=== PATIENT | male | born 1980 | race Caucasian/White ===

== ENCOUNTER 2018-04-27 13:14 | Emergency (ER) | payer MEDICAID, OTHER ==
[~2018-04-27] VITALS: Ht 188 cm; Wt 108.9 kg
[2018-04-27 13:15] VITALS: BP_SYST 158
--- NOTE | 2018-04-27 13:15 | NUR ---
BROUGHT BACK TO BED #6 AND TRIAGED. REPORT GIVEN TO KELLI
--- NOTE | 2018-04-27 13:30 | NUR ---
ER at bedside examining patient.
[2018-04-27] MEDS ORDERED: NACL 0.9% 1,000 ML IV ONE ×2 (13:45→15:30)
--- NOTE | 2018-04-27 13:50 | NUR ---
Patient is awake, alert, and oriented x4. He states he believes he had a concussion because he hit his head. He reports slipping on the concrete outside of his home and landed on the left backside of his head. States he has dizziness, nausea, and diaphoretic. Reports both torn rotator cuffs that have been repaired, umbillical hernia repair, hypertension.
--- NOTE | 2018-04-27 13:52 | NUR ---
Patient became naseous, emesis bag provided, produced 150cc of yellow vomit.
[2018-04-27] MEDS ORDERED: MORPHINE 4 MG/ML INJ. SYRINGE IVP ONE (14:15)
[2018-04-27] MEDS ORDERED: ONDANSETRON HCL 4 MG/2 ML VIAL IVP ONE (14:30)
[2018-04-27 14:49] LABS: BASOPHILS # (AUTO) 0.1 K/uL (0.0-0.2); BASOPHILS % (AUTO) 0.6 % (0.0-2.0); EOSINOPHILS # (AUTO) 0.1 K/uL (0.0-0.4); EOSINOPHILS % (AUTO) 0.8 % (0.0-4.0); HEMATOCRIT 46.3 % (36-54); HEMOGLOBIN 16.1 g/dL (14.0-18.0); LYMPHOCYTES # (AUTO) 2.8 K/uL (1.0-5.5); LYMPHOCYTES % (AUTO) 31.9 % (20.5-51.5); MEAN CORPUSCULAR HEMOGLOBIN 33 pg (27-31); MEAN CORPUSCULAR HGB CONC 35 % (32-36); MEAN CORPUSCULAR VOLUME 93 fL (79.0-98.0); MONOCYTES # (AUTO) 0.8 K/uL (0.0-1.0); MONOCYTES % (AUTO) 9.4 % (1.7-9.3); NEUTROPHILS % (AUTO) 57.3 % (40.0-70.0); PLATELET COUNT (AUTO) 237 K/uL (130-430); RED BLOOD CELL COUNT(AUTO) 4.95 MIL/uL (4.2-6.2); RED CELL DISTRIBUTION WIDTH 12.2 % (9.0-15.0); WHITE BLOOD COUNT (AUTO) 8.8 K/uL (4.8-10.8)
--- NOTE | 2018-04-27 14:50 | NUR ---
Patient transported to radiology via gurney, accompanied by radio frequency technician.
[2018-04-27 14:55] LABS: CALCIUM 9.8 mg/dL (8.4-11.0); CREATININE 1.11 mg/dL (0.55-1.30); POTASSIUM 4.1 mmol/L (3.5-5.1)
[2018-04-27 14:58] LABS: INR 1.1 (0.80-1.20); PROTHROMBIN TIME 11.1 SECS (9.5-12.5)
[2018-04-27 15:01] LABS: ALBUMIN 4.1 g/dL (3.4-4.8); TOTAL BILIRUBIN 0.6 mg/dL (0.0-1.0)
--- NOTE | 2018-04-27 15:05 | NUR ---
Returned from radiology, back to [facility].
[2018-04-27] MEDS ORDERED: PROMETHAZINE HCL 25 MG/ML AMP IVP ONE ×2 (15:30→19:30)
--- NOTE | 2018-04-27 17:02 | NUR ---
Spoke with Caden from [facility] [place] [facility] [place] scan and mechanism of injury.
--- NOTE | 2018-04-27 17:21 | NUR ---
PT MOVED TO BED 06
--- NOTE | 2018-04-27 17:21 | NUR ---
Jose jackson in [facility] - 04/27/18 at 1721 by MARY BETH PT MOVED TO BED 06
--- NOTE | 2018-04-27 17:21 | NUR ---
PT MOVED TO BED 01
--- NOTE | 2018-04-27 17:36 | NUR ---
DR BRYAN SPEAKING WITH FROM [facility] [place]
[2018-04-27] MEDS ORDERED: hydrALAZINE HCL 20 MG/ML VIAL IVP ONE (18:00)
--- NOTE | 2018-04-27 18:17 | NUR ---
Spoke with Itzel at [facility] [place] ER and gave report. Call back number is [phone].
--- NOTE | 2018-04-27 18:28 | NUR ---
Patient to be transferred to [facility]. Is being transferred due to higher level of care. Receiving facility has accepting physician and available space. ER physician has signed transfer form. Patient or responsible libertarian has agreed to transfer and signed form. Patient belongings inventoried and will be sent with patient. Copy of nursing notes, lab reports, EKG, Physicians Orders and X-rays to be sent with patient. Report called to Itzel at receiving facility. Receiving physician is Dr. Felix. [facility] ambulance service has been called for transfer. ETA is 1999.
--- NOTE | 2018-04-27 19:15 | NUR ---
Report given to Arthur for continuation of care.
--- NOTE | 2018-04-27 19:15 | NUR ---
Pt report received from NATASHA Martinez. Pt AAOx4, speaks in complete and coherent sentences, no s/s neurodeficits noted. Pt c/o dizziness and mild headach, requests medication that he received prior as it helped. Dr. Nugent notified. VSS.
--- NOTE | 2018-04-27 20:00 | NUR ---
Pt AAOx4, states that headache and dizziness is relieved s/p Phenergan administration. No focal neurosensory or neuromuscular deficits. VSS. No needs verbalized at this time. Family member at bedside.
--- NOTE | 2018-04-27 20:30 | NUR ---
B/P 157/110, HR 87. Denies c/o H/A, no SOB or C/P. AAOx4, no neurosensory or neuromuscular deficits. Dr. Santiago notified of B/P, no new orders and cleared for transport.
[2018-04-27 20:44] VITALS: BP_SYST 153
--- NOTE | 2018-04-27 20:44 | NUR ---
Patient to be transferred to [facility]. Is being transferred due to higher level of care. Receiving facility has accepting physician and available space. ER physician has signed transfer form. Patient or responsible green party has agreed to transfer and signed form. Patient belongings inventoried and will be sent with patient. Copy of nursing notes, lab reports, EKG, Physicians Orders and X-rays to be sent with patient. Report called to NATASHA Robbins at receiving facility. Receiving physician is Dr. Felix. Pt leaves in c/o ALS transport via stretcher in stable condition.
== END 2018-04-27 20:44 | disposition short-term general hospital (02) ==
LOC: SED 13:14
DX: S02.81XA Fracture of other specified skull and facial bones, right side, initial encounter for closed fracture (principal); J34.89 Other specified disorders of nose and nasal sinuses; I10 Essential (primary) hypertension; F17.200 Nicotine dependence, unspecified, uncomplicated; W18.09XA Striking against other object with subsequent fall, initial encounter; Y93.89 Activity, other specified; Y92.89 Other specified places as the place of occurrence of the external cause; Y99.8 Other external cause status
CPT/HCPCS: 36415; 70450; 70486; 72125; 80053; 85025; 85610; 96361; 96374; 96375; 96376; 99285; J0360; J2270; J2405; J2550; J7030

== ENCOUNTER 2019-10-28 23:25 | Emergency (ER) | payer OTHER ==
[~2019-10-28] VITALS: Ht 188 cm; Wt 108.9 kg
[2019-10-29 00:15] VITALS: BP_SYST 164
[2019-10-29 02:50] VITALS: BP_SYST 145
== END 2019-10-29 02:50 | disposition home or self-care (01) ==
LOC: SED 23:25
DX: L02.415 Cutaneous abscess of right lower limb (principal); L03.115 Cellulitis of right lower limb; I10 Essential (primary) hypertension; F17.210 Nicotine dependence, cigarettes, uncomplicated; Z71.6 Tobacco abuse counseling
CPT/HCPCS: 99283

== ENCOUNTER 2021-01-03 10:04 | Emergency (ER) | payer OTHER ==
[~2021-01-03] VITALS: Ht 188 cm; Wt 112.5 kg
[2021-01-03 10:33] VITALS: BP_SYST 158
[2021-01-03] MEDS ORDERED: DEXAMETHASONE SOD PHOSPHATE 10 MG/ML VIAL IVP ONE (11:00)
[2021-01-03] MEDS ORDERED: AMPICILLIN SODIUM/SULBACTAM NA 3 GM in NS 100 ML IV ONE (11:00)
[2021-01-03] MEDS ORDERED: CLINDAMYCIN 600 mg/50mL D5W 50 ML IV ONE (11:00)
[2021-01-03] MEDS ORDERED: KETOROLAC TROMETHAMINE 30 MG VIAL IVP ONE (11:00)
[2021-01-03] MEDS ORDERED: NACL 0.9% 1,000 ML IV ONE (11:00)
--- NOTE | 2021-01-03 11:30 | NUR ---
Patient to ER h2 to gown for evaluation. Side rails up.
--- NOTE | 2021-01-03 11:35 | NUR ---
pt arrives from home w/ c/o right facial/mouth swelling following a root canal
[2021-01-03] MEDS ORDERED: AMPICILLIN SODIUM/SULBACTAM NA 3 GM VIAL ONE (11:36)
--- NOTE | 2021-01-03 11:40 | NUR ---
ER at bedside examining patient.
--- NOTE | 2021-01-03 12:00 | NUR ---
# 20 gauge angiocath placed to Lac. Use of asceptic technique. Opsite placed over site. Blood return noted. Blood for lab drawn from site. Flushed with 10 cc of normal saline. No evidence of infiltration noted. Patient tolerated well.
[2021-01-03] MEDS ORDERED: IBUP-1969 PO (12:14)
[2021-01-03] MEDS ORDERED: CLIN300C12 PO (12:14)
[2021-01-03] MEDS ORDERED: PRED20TA PO (12:14)
[2021-01-03 12:44] VITALS: BP_SYST 158
--- NOTE | 2021-01-03 12:46 | NUR ---
Patient given written and verbal discharge instructions and verbalizes understanding. ER MD discussed with patient the results and treatment provided. Patient in stable condition. ID arm band removed. IV catheter removed intact and dressing applied, no active bleeding. Rx of clindamycin, ibuprofen, and prednsione given. Patient educated on pain management and to follow up with PMD. Pain Scale 3/10. Opportunity for questions provided and answered. Medication side effect fact sheet provided.
== END 2021-01-03 12:44 | disposition home or self-care (01) ==
LOC: SED 10:04
DX: K04.7 Periapical abscess without sinus (principal); I10 Essential (primary) hypertension; Z79.899 Other long term (current) drug therapy
CPT/HCPCS: 36415; 87040; 96365; 96366; 96368; 96375; 99284; J0295; J1100; J1885; J3490